=== PATIENT | male | born 1995 | race Caucasian/White ===

== ENCOUNTER 2020-12-14 17:36 | Emergency (ER) | payer OTHER ==
[~2020-12-14] VITALS: Ht 167.6 cm; Wt 86.6 kg
[~2020-12-14 17:36] MED LIST: ATI.5 PO; LEVE750T3 PO
[2020-12-14 17:47] VITALS: BP 151/90
--- NOTE | 2020-12-14 19:50 | NUR ---
PATIENT CALLED JOSE J SEEN BY PA , NO RESPONSE
--- NOTE | 2020-12-14 20:00 | NUR ---
CALLED FOR THE SECOND TIME, YAHAIRA
--- NOTE | 2020-12-14 20:15 | NUR ---
CALLED FOR THE THIRD TIME NO RESPONSE
== END 2020-12-14 19:50 | disposition left against medical advice (07) ==
LOC: MED 17:36
DX: L02.811 Cutaneous abscess of head [any part, except face] (principal); Z53.21 Procedure and treatment not carried out due to patient leaving prior to being seen by health care provider

== ENCOUNTER 2020-12-21 10:50 | Emergency (ER) | payer OTHER ==
[~2020-12-21] VITALS: Ht 167.6 cm; Wt 86.2 kg
[2020-12-21 11:00] VITALS: BP 146/80
--- NOTE | 2020-12-21 11:00 | NUR ---
TO BED AMBULATORY
--- NOTE | 2020-12-21 11:12 | NUR ---
RECEIVED A 25/M FROM TRIAGE WITH A C/O NODULE TO RIGHT FOREHEAD X 1 MONTH. PT DENIES PAIN AT THIS TIME. STATES "IT ONLY HURT SOMETIMES" PT IS ALERT TO NAME, BIRTHDAY, PLACE, EVENT. PENDING MSE.
[2020-12-21 11:24] VITALS: BP 146/80
--- NOTE | 2020-12-21 11:25 | NUR ---
Patient discharged with v/s stable. Written and verbal after care instructions given and explained. Patient verbalized understanding. Ambulatory with steady gait. All questions addressed prior to discharge. Advised to follow up with PMD.
== END 2020-12-21 11:25 | disposition home or self-care (01) ==
LOC: MED 10:50
DX: L72.3 Sebaceous cyst (principal); Z79.899 Other long term (current) drug therapy
CPT/HCPCS: 99281

== ENCOUNTER 2022-02-01 16:34 | Emergency (ER) | payer MEDICAID, OTHER ==
--- NOTE | 2022-02-01 17:20 | NUR ---
CALLEDX 1. NO SHOW Addendum: 02/01/22 at 1859 by [email or web address] PATIENT LEFT WITHOUT BEING SEEN BY DR. DR DEL REAL. NO FURTHER CARE PROVIDED FOR PATIENT.
--- NOTE | 2022-02-01 17:45 | NUR ---
CALLEDX2. NO SHOW.
--- NOTE | 2022-02-01 18:51 | NUR ---
CALLEDX3. NO SHOW.
== END 2022-02-01 17:45 | disposition left against medical advice (07) ==
LOC: MED 16:34
DX: M79.643 Pain in unspecified hand (principal); Z53.21 Procedure and treatment not carried out due to patient leaving prior to being seen by health care provider

== ENCOUNTER 2022-07-10 21:16 | Emergency (ER) | payer MEDICAID ==
[~2022-07-10] VITALS: Ht 167.6 cm; Wt 90.7 kg
[2022-07-10 21:20] VITALS: BP 125/84
[2022-07-10 21:25] VITALS: BP 125/84
[2022-07-10] MEDS ORDERED: OFLO5SOL27 RIGHT EAR (22:27)
[2022-07-10] MEDS ORDERED: CARB15DR61 OT (22:27)
[2022-07-10] MEDS ORDERED: NAPR-54 PO (22:27)
== END 2022-07-10 22:45 | disposition home or self-care (01) ==
LOC: MED 21:16
DX: H60.91 Unspecified otitis externa, right ear (principal); H61.21 Impacted cerumen, right ear; Z79.899 Other long term (current) drug therapy
CPT/HCPCS: 99283

== ENCOUNTER 2022-10-11 18:18 | Emergency (ER) | payer OTHER, MEDICAID ==
[~2022-10-11] VITALS: Ht 167.6 cm; Wt 96.6 kg
[~2022-10-11 18:18] MED LIST changes: +CARB15DR61 OT; +NAPR-54 PO; +OFLO5SOL27 RIGHT EAR
--- NOTE | 2022-10-11 18:26 | NUR ---
CALLED X 2 NO ANSWER
[2022-10-11 18:35] VITALS: BP 141/91
[2022-10-11] MEDS ORDERED: OFLO5SOL27 RIGHT EAR (20:15)
[2022-10-11 20:26] VITALS: BP 141/91
--- NOTE | 2022-10-11 20:26 | NUR ---
Patient discharged with v/s stable. Written and verbal after care instructions given and explained. Patient alert, oriented and verbalized understanding of instructions. Ambulatory with steady gait. All questions addressed prior to discharge. ID band removed. Patient advised to follow up with PMD. Rx of FLOXIN OT given. Patient educated on indication of medication including possible reaction and side effects. Opportunity to ask questions provided and answered.
== END 2022-10-11 20:26 | disposition home or self-care (01) ==
LOC: MED 18:18
DX: H60.91 Unspecified otitis externa, right ear (principal); Z79.899 Other long term (current) drug therapy
CPT/HCPCS: 99283

== ENCOUNTER 2023-02-24 21:14 | Emergency (ER) | payer MEDICAID, OTHER ==
[~2023-02-24] VITALS: Ht 167.6 cm; Wt 90.7 kg
[2023-02-24 21:23] VITALS: BP 124/63; PULSE 73; RESP 18; TEMP 97.4; O2SAT 100
[2023-02-24 21:35] VITALS: O2SAT 100
[2023-02-24] MEDS ORDERED: BACITRACIN OINT 500 UNITS/GM PKT TP ONE (23:00)
[2023-02-24] MEDS ORDERED: BACI-418 TP (23:09)
== END 2023-02-24 23:25 | disposition home or self-care (01) ==
LOC: MED 21:14
DX: S91.341A Puncture wound with foreign body, right foot, initial encounter (principal); X58.XXXA Exposure to other specified factors, initial encounter; Y93.89 Activity, other specified; Y92.89 Other specified places as the place of occurrence of the external cause; Y99.8 Other external cause status
CPT/HCPCS: 73620; 73630; 99284; Q0092

== ENCOUNTER 2023-10-18 17:30 | Emergency (ER) | payer MEDICAID ==
[~2023-10-18] VITALS: Ht 167.6 cm; Wt 72.6 kg
[~2023-10-18 17:30] MED LIST changes: +BACI-418 TP; +NAPR-337 PO; -NAPR-54 PO
[2023-10-18 17:47] VITALS: BP 121/77; PULSE 87; RESP 18; TEMP 98.2; O2SAT 99
[2023-10-18] MEDS ORDERED: CEPH-588 PO (17:56)
[2023-10-18] MEDS ORDERED: SULF-59 PO (17:56)
== END 2023-10-18 18:21 | disposition home or self-care (01) ==
LOC: MED 17:30
DX: L02.511 Cutaneous abscess of right hand (principal); L03.113 Cellulitis of right upper limb; Z79.1 Long term (current) use of non-steroidal anti-inflammatories (NSAID); Z79.2 Long term (current) use of antibiotics; Z79.899 Other long term (current) drug therapy
CPT/HCPCS: 90471; 90715; 99283